=== PATIENT | female | born 1975 | race Caucasian/White ===

== ENCOUNTER 2022-12-01 07:28 | Day surgery (SDC) | payer OTHER ==
[2022-12-01] MEDS ORDERED: Lactated Ringers 1,000 ML IV SCH (08:00)
[2022-12-01] MEDS ORDERED: Propofol 200 MG/20 ML SDV ONE (08:16)
[2022-12-01] MEDS ORDERED: Midazolam 1 MG/ML 2 ML SDV ONE (08:16)
[2022-12-01] MEDS ORDERED: fentaNYL 100 MCG/2 ML SDV ONE (08:16)
== END 2022-12-01 10:08 | disposition home or self-care (01) ==
LOC: JP.SDS 07:28
PROVIDERS: ATTEND Student in an Organized Health Care Education/Training Program
DX: Z12.11 Encounter for screening for malignant neoplasm of colon (principal); E78.5 Hyperlipidemia, unspecified; E66.01 Morbid (severe) obesity due to excess calories; Z68.33 Body mass index [BMI] 33.0-33.9, adult
CPT/HCPCS: 45378; J2250; J2704; J3010; J7120

== ENCOUNTER 2023-06-16 11:55 | Emergency (ER) | payer BC, OTHER ==
[2023-06-16] MEDS ORDERED: Gabapentin 300 MG Cap PO ONE (12:22)
== END 2023-06-16 12:35 | disposition home or self-care (01) ==
LOC: JP.ED 11:55
DX: G54.2 Cervical root disorders, not elsewhere classified (principal); E66.9 Obesity, unspecified; Z86.16 Personal history of COVID-19; Z88.0 Allergy status to penicillin; Z68.34 Body mass index [BMI] 34.0-34.9, adult
CPT/HCPCS: 99283; A9270